=== PATIENT | female | born 1990 | race Caucasian/White ===

== ENCOUNTER 2021-10-10 00:30 | Emergency (ER) | payer OTHER ==
[2021-10-10] MEDS ORDERED: diphenhydrAMINE 50 MG/ML SDV IM ONE (00:41)
[2021-10-10] MEDS ORDERED: Famotidine 20 MG Tab PO STA (00:42)
--- NOTE | 2021-10-10 01:15 | EDM.PDOC ---
<Jenny Pabon - Last Filed: 10/10/21 01:13> ED HPI GENERAL MEDICAL PROBLEM - General Chief Complaint: Allergic Reaction Stated Complaint: ALLERGIC REACTION OVER BODY Time Seen by Provider: 10/10/21 00:30 - Related Data Allergies Allergy/AdvReac Type Severity Reaction Status Date / Time No Known Allergies Allergy Verified 10/10/21 00:42 Home Meds: Home Meds Cholecalciferol (Vitamin D3) [Vitamin D3] 1 cap PO DAILY 10/10/21 [History] Cyanocobalamin (Vitamin B-12) [Vitamin B12] 1 tab PO DAILY 10/10/21 [History] Lisdexamfetamine Dimesylate [Vyvanse] 1 tab PO DAILY 10/10/21 [History] Magnesium 2 tab PO DAILY 10/10/21 [History] Vortioxetine Hydrobromide [Trintellix] 2 tab PO DAILY 10/10/21 [History] hydrOXYzine pamoate [Vistaril] 1 tab PO TID 10/10/21 [History] lamoTRIgine [Lamotrigine] 1 tab PO DAILY 10/10/21 [History] predniSONE 2 tab PO DAILY 10/10/21 [History] Past Medical History HEENT History: Reports: Sinusitis Respiratory History: Reports: Bronchitis, Recurrent Gastrointestinal History: Reports: PUD Neurological History: Reports: Migraines Psychiatric History: Reports: Anxiety, Depression - Infectious Disease History Infectious Disease History: Reports: Chicken Pox - Past Surgical History GI Surgical History: Reports: Appendectomy Female Surgical History: Reports: Breast Implant Social & Family History - Caffeine Use Caffeine Use: Reports: Coffee - Recreational Drug Use Recreational Drug Use: No Departure - Departure Time of Disposition: 01:13 Disposition: Home, Self-Care 01 Condition: Fair Clinical Impression: Urticaria - Discharge Information *PRESCRIPTION DRUG MONITORING PROGRAM REVIEWED*: No *COPY OF PRESCRIPTION DRUG MONITORING REPORT IN PATIENT TONNY: No Instructions: Hives Referrals: Jenny Pabon PA [Primary Care Provider] - Forms: ED Department Discharge Additional Instructions: 1. Cool showers 2. Benadryl 50 mg every 6 hours for at minimum next 24 hours, may need to continue to avoid rebound issue hives once steroids are completed 3. Pepcid 20 mg daily 4. Continue prednisone 5. Hydroxyzine 25 mg every 6 hours for itching 6. If persists, may need to consider stopping Trintellix, check with psychiatry prior to stopping 7. Call with any questions or concerns. Sepsis Event Note (ED) - Evaluation Sepsis Screening Result: No Definite Risk <Chilango Marshall - Last Filed: 10/10/21 01:57> ED HPI GENERAL MEDICAL PROBLEM - General Source of Information: Reports: Patient History Limitations: Reports: No Limitations - History of Present Illness INITIAL COMMENTS - FREE TEXT/NARRATIVE: This is a 31-year-old female patient that presents to the emergency department with continued rash and itching. Patient was seen at the clinic on Sunday and her states that she received a shot of steroid medicine, and was prescribed prednisone and hydroxyzine. Patient has had continued rash that has been spreading. Reports that it started on her bilateral thighs and arms. States that the rash has progressed down her legs and covers some of her back and both arms. She denies any breathing difficulties. Denies any known allergen and has not changed any sorts of soap, fabric softener, lotions, or any changes whatsoever. States that she did take Benadryl last an hour or 2 before arriving in the emergency department. Her main complaint is itchiness. Onset: Gradual Duration: Day(s): Location: Reports: Back, Upper Extremity, Left, Upper Extremity, Right, Lower Extremity, Left, Lower Extremity, Right Quality: Reports: Other (Itching) Severity: Moderate Improves with: Reports: None Worsens with: Reports: None Associated Symptoms: Denies: Fever/Chills, Nausea/Vomiting, Shortness of Breath ED ROS ALLERGIC REACTION - Review of Systems Review Of Systems: See Below Constitutional: Denies: Fever, Chills, Malaise, Weakness HEENT: Denies: Sinus Problem, Throat Pain, Throat Swelling Respiratory: Denies: Shortness of Breath, Wheezing Cardiovascular: Denies: Chest Pain, Dyspnea on Exertion Endocrine: Reports: No Symptoms GI/Abdominal: Denies: Abdominal Pain, Nausea, Vomiting : Reports: No Symptoms Musculoskeletal: Reports: No Symptoms Skin: Reports: Pruritis, Rash (See HPI) Neurological: Reports: No Symptoms Psychiatric: Reports: No Symptoms Hematologic/Lymphatic: Reports: No Symptoms Immunologic: Reports: No Symptoms ED EXAM GENERAL NO PERIP PULSE - Physical Exam Exam: See Below Exam Limited By: No Limitations General Appearance: Alert, WD/WN, Mild Distress Ears: Normal External Exam Nose: Normal Inspection Throat/Mouth: Normal Inspection, Normal Voice, No Airway Compromise Head: Atraumatic, Normocephalic Neck: Normal Inspection, Supple, Full Range of Motion Respiratory/Chest: No Respiratory Distress, Lungs Clear Cardiovascular: Regular Rate, Rhythm GI/Abdominal: No Distention (Female) Exam: Deferred Rectal (Female) Exam: Deferred Back Exam: Other (Urticaria to lower back) Extremities: Other (Urticaria noted to bilateral upper and lower extremities) Neurological: Alert, Oriented, Normal Cognition Psychiatric: Normal Affect, Normal Mood Skin Exam: Warm, Dry (Urticarial rash noted to bilateral lower extremities bilateral upper extremities, and lower back), Rash Lymphatic: No Adenopathy Course - Vital Signs Last Recorded V/S: Last Vital Signs Temp 98 F 10/10/21 00:37 Pulse 78 10/10/21 00:37 Resp 18 10/10/21 00:37 BP 112/79 10/10/21 00:37 Pulse Ox 97 10/10/21 00:37 - Orders/Labs/Meds Meds: Medications Discontinued Medications Generic Name Dose Route Start Last Admin Trade Name Freq PRN Reason Stop Dose Admin Diphenhydramine HCl 50 mg 10/10/21 00:41 10/10/21 00:49 Diphenhydramine 50 Mg/Ml Sdv IM 10/10/21 00:42 50 mg ONETIME ONE Administration Famotidine 20 mg 10/10/21 00:42 10/10/21 00:53 Famotidine 20 Mg Tab PO 10/10/21 00:43 20 mg NOW STA Administration - Re-Assessments/Exams Free Text/Narrative Re-Assessment/Exam: This is a 31-year-old female patient that presented to the ED with urticaria rash that she had been seen for the clinic on Sunday. Patient has been taking prednisone and Benadryl. The rash has been persistent and spreading. 50 mg IM Benadryl and ranitidine administered in the emergency department. With already receiving a shot of steroids in the clinic as well as a prescription of prednisone elected not to administer more steroid medicine. Patient had also received a prescription for hydroxyzine in the clinic. The plan for the patient is to take Benadryl scheduled every 6 hours 50 mg for the next 24 hours. We will increase her hydroxyzine 25mg every 6 hours for itching. She can also take Pepcid an H2 antihistamine daily. She should continue her current dose of prednisone daily. Follow-up at the clinic if urticaria and itching is not improving. If the rash persists she should consider stopping her Trintellix that she has been on for the last couple weeks. If urticaria remains chronic she may need to see dermatology. Cool showers may help soothe the itching and irritation. Call or return if any questions, concerns, or worsening symptoms such as shortness of breath, wheezing, or feeling as her throat is swelling. Sepsis Event Note (ED) - Focused Exam Vital Signs: Vital Signs Temp Pulse Resp BP Pulse Ox 10/10/21 00:37 98 F 78 18 112/79 97
== END 2021-10-10 01:30 | disposition home or self-care (01) ==
LOC: CC.ED 00:30
DX: L50.9 Urticaria, unspecified (principal)
CPT/HCPCS: 96372; 99282; A9270; J1200